=== PATIENT | female | born 2000 | race Caucasian/White ===

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

== ENCOUNTER 2022-01-01 15:20 | Emergency (ER) | payer OTHER, BC, SELFPAY ==
[2022-01-01 15:39] VITALS: BP 121/68; PULSE 90; RESP 16; TEMP 36.8; O2SAT 98; BMI 23.3
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
[2022-01-01 16:32] LABS: Basophils # 0.1 10^3/uL (0.0-0.1); Basophils % 0.9 %; Eosinophils # 0.1 10^3/uL (0.0-0.8); Eosinophils % 1.2 %; Hematocrit 34.4 % (37.0-47.0); Hemoglobin 10.4 g/dL (11.5-15.3); Lymphocytes # 1.8 10^3/uL (1.5-6.5); Lymphocytes % 30.9 %; Mean Corpuscular HGB Conc 30.2 g/dL (30.0-36.0); Mean Corpuscular Hemoglobin 23.4 pg (28.0-34.0); Mean Corpuscular Volume 77.5 fl (81-99); Mean Platelet Volume 10.8 fL (7.4-10.4); Monocytes # 0.4 10^3/uL (0.2-0.9); Monocytes % 6.2 %; Neutrophils # 3.54 10^3/uL (1.8-8.0); Neutrophils % 60.6 %; Nucleated Red Blood Cells % 0 %; Platelet Count 303 10^3/cmm (130-400); Red Blood Count 4.44 10^6/uL (4.1-5.3); Red Cell Distribution Width 15.5 % (12.1-15.1); White Blood Count 5.8 10^3/uL (4.5-13.0)
[2022-01-01] MEDS: ondansetron 2 mg/ML SDV 2 mL 4 MG IVP (16:47)
[2022-01-01] MEDS: sodium chloride 0.9% 500 ML 999 ML IV (16:48)
[2022-01-01 17:06] LABS: Alanine Aminotransferase 17 U/L (0-33); Albumin Level 4.5 g/dL (3.5-5.2); Alkaline Phosphatase 61 IU/L (35-105); Aspartate Amino Transferase 17 U/L (0-32); Blood Urea Nitrogen 10 mg/dL (6-20); Calcium 8.7 mg/dL (8.5-10.5); Carbon Dioxide 23 mmol/L (22-29); Chloride 106 mmol/L (98-107); Globulin 2.8 g/dL (1.3-4.6); Glomerular Filtration Rate 128.8 mL/min (90-130); Glucose 83 mg/dL (65-115); HCG, Serum Qual Negative (Negative); Osmolality Calculated 290 mOsm/kg (285-295); Sodium 141 mmol/L (136-145); Total Bilirubin 0.3 mg/dL (0.15-1.2); Total Protein 7.3 g/dL (6.6-8.7)
[2022-01-01] MEDS: iohexol 350 mg/mL 100 mL Btl IV (18:28)
== END 2022-01-01 19:29 | disposition home or self-care (01) ==
PROVIDERS: Physician Assistant; Emergency Provider Nurse Practitioner Family; PCP Family Medicine
DX: S16.1XXA Strain of muscle, fascia and tendon at neck level, initial encounter (principal); V89.2XXA Person injured in unspecified motor-vehicle accident, traffic, initial encounter
CPT/HCPCS: 70450; 71260; 72125; 74177; 80053; 84703; 85025; 96374; 99283; J2405; J7040; Q9967

== ENCOUNTER 2022-06-26 22:05 | Emergency (ER) | payer OTHER, BC, MEDICAID, SELFPAY ==
[2022-06-26 22:09] VITALS: PULSE 97; RESP 19; TEMP 36.7; O2SAT 100; BMI 22.6
[2022-06-26 22:15] VITALS: BP 130/82
[2022-06-26 22:22] VITALS: BP 131/76; PULSE 92; O2SAT 100
--- NOTE | 2022-06-26 22:22 | W.ED.ALCOHOL ---
HPI - Alcohol General: Chief Complaint: Alcohol Stated Complaint: Dizzy, N/V Time Seen by Provider: 06/26/22 22:06 Source: patient Mode of arrival: ambulatory Limitations: no limitations History of Present Illness: 22-year-old female states that she had been drinking tonight and has been taking shots of vodka. She states that she has been vomiting and felt like she was going to pass out states she is feels very nauseous and ill. She denies any pain anywhere denies hitting her head denies injuries. Associated symptoms: Reports nausea and vomiting; Deny depression Review of Systems Const: Denies: fever(s), chills, body aches or change in appetite Eyes: Denies: blurry vision or eye discomfort ENMT: Denies: throat pain or dental pain Card: Denies: chest pain Resp: Denies: dyspnea GI: Reports: nausea and vomiting : Denies: dysuria Musc: Denies: neck pain or back pain Skin/Breast: Denies: rash Neuro: Denies: headache(s) Psych: Denies: depression Gen/Lymph: Denies: easy bruising All/Imm: Denies: urticaria PFSH ED PFSH: Medical History Chronic migraine History of anemia as a child Hypersomnia, idiopathic Surgical History S/P lumpectomy, right breast (05/14/21) Juvenile fibroadenoma S/P tonsillectomy Family History Mother Diabetes Father Diabetes Hypertension Social History Smoking and tobacco status: never smoked Second hand smoke exposure: No Alcohol intake: never Female Reproductive History: Date of last menstrual period: 05/03/21 Physical Exam Const: COMMON NORMALS: no acute distress, patient oriented x3 and healthy appearing HENMT: COMMON NORMALS: normocephalic and atraumatic HEAD & SCALP: normocephalic and atraumatic Eye: COMMON NORMALS: Equal, round and reactive pupils present and EOMs intact bilaterally PUPIL: Yes Equal, round and reactive pupils present Neck/C-Spine: COMMON NORMALS: full ROM and supple Chest: COMMONS NORMALS: normal inspection of the chest and normal palpation of entire chest wall Resp: COMMON NORMALS: normal respiratory effort, No retractions, No use of accessory muscles and clear to auscultation bilaterally AUSCULTATION: clear to auscultation bilaterally Cardio: COMMON NORMALS: regular rate, regular rhythm and No murmurs present (Cardio) RATE: regular rate RHYTHM: regular rhythm GI: COMMON NORMALS: Normal to inspection, nondistended, normoactive bowel sounds present, Soft to palpation, non-tender and no masses PALPATION: Yes Soft to palpation Extremity: COMMON NORMALS: normal to inspection and full ROM Neuro: COMMON NORMALS: patient oriented x3, moves all extremities and no focal motor deficits Psych: COMMON NORMALS: mental status grossly normal, Normal thought process present and cooperative THOUGHT PROCESS: Normal thought process present Skin: COMMON NORMALS: no rashes or lesions noted and no wounds GENERAL SKIN EXAM: no rashes or lesions noted Course Vital Signs: Vital signs: Vital Signs Temperature 98.1 F 06/26/22 22:09 Pulse Rate 97 06/26/22 22:31 Respiratory Rate 19 H 06/26/22 22:09 Blood Pressure 123/72 06/26/22 22:31 Pulse Oximetry 100 06/26/22 22:31 Oxygen Delivery Me thod 06/26/22 22:09 [facility] - Alcohol Medical Decision Making Patient presents here with alcohol intoxication she feels improved after Zofran and fluids she is ambulatory she is stable for discharge return if worsening. Discharge Plan Discharge Patient Disposition: Home Clinical Impression: Alcohol intoxication Condition: Stable Prescriptions: No Action buspirone 5 mg tablet 5 mg PO TID PRN (Reason: anxiety) Qty: 90 0RF naproxen [Naprosyn] 500 mg tablet 500 mg PO BID PRN (Reason: pain) Qty: 40 0RF Rx Instructions: Take with food sertraline 100 mg tablet 100 mg PO DAILY Qty: 90 1RF ferrous sulfate [FeroSul] 325 mg (65 mg iron) tablet 325 mg PO BID Qty: 60 5RF Discharge Orders: Discharge ED (Routine); Ordered 06/26/22 Ordered By: Jaclyn Tran Referrals: Beryl Vieira DO [Primary Care Provider] - Discharge Diet: Advance as tolerated Discharge Activity: Resume usual activity Patient Instructions: Alcohol Intoxication (ED) Coding Level of Care Code ED Filer Finish for Cielo Fwd Exam Comprehensive
[2022-06-26 22:31] VITALS: BP 123/72; PULSE 97; O2SAT 100
[2022-06-26] MEDS: ondansetron 2 mg/ML SDV 2 mL 4 MG IVP (22:35)
[2022-06-26] MEDS: sodium chloride 0.9% 1,000 ML 999 ML IV (22:35)
== END 2022-06-26 23:40 | disposition home or self-care (01) ==
PROVIDERS: Emergency Provider Emergency Medicine; PCP Family Medicine
DX: F10.129 Alcohol abuse with intoxication, unspecified (principal)
CPT/HCPCS: 96374; 99284; J2405; J7030

== ENCOUNTER → 2022-07-20 11:51 | Outpatient (BNVA) | payer OTHER, BC, MEDICAID, SELFPAY | PROVIDERS: PCP Family Medicine; Visit Provider Family Medicine | DX: F41.1 Generalized anxiety disorder (principal); D50.9 Iron deficiency anemia, unspecified | CPT/HCPCS: 82728; 83550; 85025 ==

== ENCOUNTER 2022-08-26 10:50 | Emergency (ER) | payer OTHER, BC, MEDICAID, SELFPAY ==
--- NOTE | 2022-08-26 10:58 | XRR_ITS ---
PROCEDURE INFORMATION: Exam: XR Chest Exam date and time: 08/26/2022 11:48 AM Age: 22 years old Clinical indication: Cough TECHNIQUE: Imaging protocol: Radiologic exam of the chest. Views: 1 view. COMPARISON: CT chest abd pel w con* 01/01/2022 6:15 PM FINDINGS: Lungs: Unremarkable. No consolidation. Pleural spaces: Unremarkable. No pleural effusion. No pneumothorax. Heart/Mediastinum: Unremarkable. No cardiomegaly. Bones/joints: Unremarkable for age. Other findings: 0FINDINGS: XR/XR chest 1V portable [id number] IMPRESSION: Negative chest
[2022-08-26 11:10] VITALS: BP 120/68; PULSE 111; RESP 15; TEMP 39.3; O2SAT 98; BMI 23.3
[2022-08-26 11:27] VITALS: BP 112/67; PULSE 113; RESP 16; O2SAT 97
--- NOTE | 2022-08-26 11:30 | W.ED.GENADLT ---
HPI - General Adult General: Chief complaint: General Medical Stated complaint: cough/congestion Time Seen by Provider: 08/26/22 11:04 History of Present Illness: Patient is a 22-year-old female comes to the ED with upper respiratory symptoms. Patient has had a sore throat for the past 5 days. Over the past 2 days she has been having fever, cough, nasal congestion and drainage and nausea. Denies any emesis. Patient took a dose of Tylenol just prior to arrival to ED. She also reports some dysuria. Associated symptoms: Deny chest pain, dyspnea, headache(s), nausea, rash, palpitations or vomiting Review of Systems Const: Reports: fever(s), chills, body aches and fatigue Eyes: Denies: change in vision or eye discomfort ENMT: Reports: throat pain, ear or mastoid pain, nasal discharge and nasal congestion; Denies: odynophagia Card: Denies: chest pain, palpitations, edema, swelling of feet/ankles, dyspnea on exertion or orthopnea Resp: Reports: non-productive cough; Denies: dyspnea or productive cough GI: Denies: abdominal pain, nausea, vomiting, diarrhea, constipation or hematochezia : Reports: dysuria; Denies: flank pain or hematuria Musc: Denies: neck pain, back pain or extremity swelling Skin/Breast: Denies: rash or new lesions Neuro: Denies: headache(s), numbness in extremities or weakness in extremities [facility] ED PFSH: Medical History Chronic migraine History of anemia as a child Hypersomnia, idiopathic Surgical History S/P lumpectomy, right breast (05/14/21) Juvenile fibroadenoma S/P tonsillectomy Family History Mother Diabetes Father Diabetes Hypertension Social History Smoking and tobacco status: never smoked Second hand smoke exposure: No Alcohol intake: never Female Reproductive History: Date of last menstrual period: 05/03/21 Physical Exam Const: COMMON NORMALS: patient oriented x3 and alert GENERAL APPEARANCE: cooperative HENMT: COMMON NORMALS: normocephalic HEAD & SCALP: normocephalic MOUTH: Normal oral and palatal mucosa present THROAT: posterior oropharynx normal and uvula midline Neck/C-Spine: COMMON NORMALS: supple GENERAL: Yes normal visual inspection Resp: COMMON NORMALS: normal respiratory effort, No retractions, No use of accessory muscles and clear to auscultation bilaterally AUSCULTATION: clear to auscultation bilaterally Cardio: COMMON NORMALS: regular rate, regular rhythm, S1 normal heart sound present, S2 normal heart sound present, No gallops present (Cardio), No clicks present (Cardio), No murmurs present (Cardio) and Peripheral pulses 2+ throughout RATE: regular rate RHYTHM: regular rhythm HEART SOUNDS: S1 normal heart sound present and S2 normal heart sound present PERIPHERAL PULSES: Peripheral pulses 2+ throughout GI: COMMON NORMALS: Normal to inspection, nondistended, normoactive bowel sounds present, Soft to palpation, non-tender and no masses PALPATION: Yes Soft to palpation : COMMON NORMALS: Yes no CVA tenderness BLADDER/KIDNEY EXAM: Yes no CVA tenderness Back/Pelvis: COMMON NORMALS: no CVA tenderness Extremity: COMMON NORMALS: normal to inspection Neuro: COMMON NORMALS: patient oriented x3 SENSORIUM/ORIENTATION: Yes alert GAIT: Yes Normal gait present Skin: GENERAL SKIN EXAM: dry skin Course Vital Signs: Vital signs: Vital Signs Temperature 102.8 F H 08/26/22 11:10 Pulse Rate 113 H 08/26/22 11:27 Respiratory Rate 16 08/26/22 11:27 Blood Pressure 112/67 08/26/22 11:27 Pulse Oximetry 97 08/26/22 11:27 Oxygen Delivery Me thod 08/26/22 11:27 [facility] - General Adult Medical Decision Making Patient is a 22-year-old female comes to the ED with upper respiratory symptoms. She was also complaining of having some dysuria. Temp 102.8 here in the ED rest of vitals are stable. Her exam is benign. Chest x-ray shows no acute findings. UA was unremarkable. COVID-negative, strep negative and influenza A was positive. Patient was given a dose of Zofran, ibuprofen here in the ED. She was able to tolerate p.o. fluids. She was diagnosed with influenza A and was stable for discharge home. She was sent home with a prescription for Zofran. Told to follow-up with PCP within the next week for reevaluation. Return to ED precautions given. Patient understood and agreed with plan. Lab Data I reviewed the patient's lab results. Radiology Impressions Chest X-Ray 08/26/22 10:58 IMPRESSION: Negative chest Laboratory Results HCG, Qual Negative (Negative) 08/26/22 12:24 Urine Color Yellow (Yellow) 08/26/22 12:24 Urine Appearance Hazy (CLEAR) A 08/26/22 12:24 Urine pH 8 (5-7) H 08/26/22 12:24 Ur Specific [place] 1.015 (1.005-1.030) 08/26/22 12:24 Urine Protein Neg (Negative) 08/26/22 12:24 Urine Glucose (UA) Norm (Normal) 08/26/22 12:24 Urine Ketones Negative (Negative) 08/26/22 12:24 Urine Blood Neg (Negative) 08/26/22 12:24 Urine Nitrate Negative (Negative) 08/26/22 12:24 Urine Bilirubin Neg (Negative) 08/26/22 12:24 Prot Sulfosalicylic Acd Negative (Negative) 08/26/22 12:24 Urine Urobilinogen Neg mg/dL (Negative) 08/26/22 12:24 Ur Leukocyte Esterase Negative (Negative) 08/26/22 12:24 Urine RBC Rare /hpf (0-2) 08/26/22 12:24 Urine WBC 0-4 /hpf (0-5) H 08/26/22 12:24 Ur Squamous Epith Cells 5-10 /hpf (0-5) H 08/26/22 12:24 Amorphous Sediment 2+ /hpf 08/26/22 12:24 Urine Bacteria 1+ /hpf (NONE) H 08/26/22 12:24 Urine Mucus 1+ /hpf 08/26/22 12:24 Influenza Type A Ag Positive (Negative) H 08/26/22 11:24 Influenza Type B Ag Negative (Negative) 08/26/22 11:24 SARS-CoV-2 Ag (Rapid) negative (Negative) 08/26/22 11:24 Group A Strep Rapid Negative (Negative) 08/26/22 11:24 Discharge Plan Discharge Patient Disposition: Home Clinical Impression: Influenza A Condition: Stable Prescriptions: New ondansetron 4 mg tablet,disintegrating 4 mg PO Q8H PRN (Reason: nausea and vomiting) Qty: 20 0RF No Action buspirone 5 mg tablet 5 mg PO TID PRN (Reason: anxiety) Qty: 90 0RF naproxen [Naprosyn] 500 mg tablet 500 mg PO BID PRN (Reason: pain) Qty: 40 0RF Rx Instructions: Take with food sertraline 100 mg tablet 100 mg PO DAILY Qty: 90 1RF ferrous gluconate 324 mg (37.5 mg iron) tablet 324 mg PO TID Qty: 30 2RF Discharge Orders: Discharge ED (Routine); Ordered 08/26/22 Ordered By: Epifanio Newton Referrals: Beryl Vieira DO [Primary Care Provider] - Discharge Diet: Regular Discharge Activity: Increase activity as tolerated Patient Instructions: Influenza (ED) Activity Restrictions/Additional Instructions: Follow-up with medical provider as directed in the next 5 to 7 days for reevaluation. Take medications as prescribed. Make sure you drink plenty of fluids and stay hydrated. Take Tylenol or ibuprofen for any fevers. Return to the ER or your medical provider if condition worsens. Please read and understand discharge instructions. Thank you for choosing [facility] for your healthcare needs today. Please realize this is an emergency room and that we are providing you with a medical screening exam and this may not be complete and all inclusive of all the testing and or work up that you may need to determine your ailment or severity of your illness. It is very important that you follow up as instructed or that you return to the Emergency Department should you have concerns or if your condition changes or worsens in any way. Coding Level of Care Code ED Cctv Technician for Cielo Hopper Exam Comprehensive
[2022-08-26] MEDS: ibuprofen 800 mg tablet PO (11:33)
[2022-08-26] MEDS: ondansetron 2 mg/ML SDV 2 mL 4 MG IM (11:33)
[2022-08-26 11:56] LABS: Rapid Strep A Test Negative (Negative)
[2022-08-26 12:04] LABS: SARS Covid-2 Antigen negative (Negative)
[2022-08-26 12:31] LABS: Influenza A by IFA Positive (Negative); Influenza B by IFA Negative (Negative)
[2022-08-26 12:37] LABS: HCG Qualitative Urine. Negative (Negative)
[2022-08-26 12:42] LABS: Add Urine Microscopic? YES; Bilirubin Urine Neg (Negative); Blood Urine Neg (Negative); Glucose Urine UA Norm (Normal); Ketones Urine Negative (Negative); Leukocyte Esterase Urine Negative (Negative); Nitrate Urine Negative (Negative); Protein Urine Neg (Negative); Specific Gravity, Urine 1.015 (1.005-1.030); Sulfosalicylic Acid Urine Negative (Negative); Urine Appearance Hazy (CLEAR); Urine Color Yellow (Yellow); Urobilinogen Urine Neg (Negative); pH Urine 8 (5-7)
[2022-08-26 12:43] LABS: Bacteria Urine 1+ /hpf; Mucus Urine 1+ /hpf; RBC Urine RARE /hpf (0-2); WBC Urine 0-4 /hpf (0-5)
[2022-08-26 12:44] LABS: Add Urine Culture? No; Amorphous Sediment Urine 2+ /hpf
== END 2022-08-26 13:03 | disposition home or self-care (01) ==
PROVIDERS: Emergency Provider Physician Assistant; PCP Family Medicine
DX: J10.1 Influenza due to other identified influenza virus with other respiratory manifestations (principal); Z20.822 Contact with and (suspected) exposure to COVID-19
CPT/HCPCS: 71045; 81001; 81025; 87081; 87426; 87804; 87880; 96372; 99284; J2405

== ENCOUNTER → 2022-12-29 13:11 | Outpatient (BNVA) | payer OTHER, BC, MEDICAID, SELFPAY | PROVIDERS: PCP Family Medicine; Visit Provider Nurse Practitioner Family | DX: Z20.89 Contact with and (suspected) exposure to other communicable diseases (principal) | CPT/HCPCS: 80053 ==

== ENCOUNTER → 2023-01-19 13:23 | Outpatient (BNVA) | payer OTHER, BC, MEDICAID, SELFPAY | PROVIDERS: PCP Family Medicine; Visit Provider Family Medicine | DX: D50.9 Iron deficiency anemia, unspecified (principal); R21 Rash and other nonspecific skin eruption | CPT/HCPCS: 80048; 82728; 82785; 83550; 86003 ==

== ENCOUNTER → 2023-03-11 11:12 | Outpatient (BNVA) | payer MEDICAID, SELFPAY | PROVIDERS: PCP Family Medicine; Visit Provider Family Medicine | DX: Z01.419 Encounter for gynecological examination (general) (routine) without abnormal findings (principal) | CPT/HCPCS: 87491; 87591; 87624 ==

== ENCOUNTER → 2023-05-10 13:31 | Outpatient (BNVA) | payer MEDICAID, SELFPAY | PROVIDERS: PCP Family Medicine; Visit Provider Family Medicine | DX: R11.0 Nausea (principal); D50.0 Iron deficiency anemia secondary to blood loss (chronic) | CPT/HCPCS: 81025; 82728; 83550; 85025 ==

== ENCOUNTER → 2023-09-09 13:15 | Outpatient (BNVA) | payer MEDICAID, SELFPAY | PROVIDERS: PCP Family Medicine; Visit Provider Family Medicine | DX: Z13.6 Encounter for screening for cardiovascular disorders (principal); D50.0 Iron deficiency anemia secondary to blood loss (chronic); D50.9 Iron deficiency anemia, unspecified; F41.1 Generalized anxiety disorder | CPT/HCPCS: 82728; 83550; 85025 ==

== ENCOUNTER → 2023-12-17 11:28 | Outpatient (BNVA) | payer SELFPAY | PROVIDERS: PCP Family Medicine; Visit Provider Nurse Practitioner | DX: R39.9 Unspecified symptoms and signs involving the genitourinary system (principal); Z32.00 Encounter for pregnancy test, result unknown; R30.0 Dysuria | CPT/HCPCS: 81000; 81025; 87086 ==

== ENCOUNTER → 2024-01-18 10:45 | Outpatient (BNVA) | payer OTHER, SELFPAY | PROVIDERS: PCP Family Medicine; Visit Provider Obstetrics & Gynecology | DX: Z00.00 Encounter for general adult medical examination without abnormal findings (principal) | CPT/HCPCS: 80053; 84146; 84443; 85025 ==

== ENCOUNTER → 2024-03-06 12:08 | Outpatient (BNVA) | payer SELFPAY | PROVIDERS: PCP Family Medicine; Visit Provider Obstetrics & Gynecology | DX: N92.0 Excessive and frequent menstruation with regular cycle (principal) | CPT/HCPCS: 76830 ==

== ENCOUNTER → 2024-06-20 15:06 | Outpatient (BNVA) | payer OTHER, SELFPAY | PROVIDERS: PCP Family Medicine | DX: Z32.01 Encounter for pregnancy test, result positive (principal); D50.0 Iron deficiency anemia secondary to blood loss (chronic) | CPT/HCPCS: 83550; 84702 ==

== ENCOUNTER → 2024-07-05 14:52 | Outpatient (BNVA) | payer OTHER, SELFPAY | PROVIDERS: PCP Family Medicine; Visit Provider Obstetrics & Gynecology | DX: Z36.87 Encounter for antenatal screening for uncertain dates (principal); Z3A.01 Less than 8 weeks gestation of pregnancy | CPT/HCPCS: 76817; 81025 ==

== ENCOUNTER 2024-07-13 07:48 | Emergency (ER) | payer OTHER, SELFPAY ==
[2024-07-13 07:50] VITALS: BP 128/57; PULSE 82; RESP 18; TEMP 36.7; O2SAT 100
--- NOTE | 2024-07-13 07:50 | ECG_ITS ---
[email or web address] Triptease Test Date: 2024-07-13 Pat Name: Santosh Isaac Department: Room: Gender: Female Plug Cutter: : 2000 Requested By: Jaclyn Tran Order Number: [id number] [place] MD: José Miguel Castillo M.D. Measurements Intervals [place] Rate: 84 P: 70 IL: 148 QRS: 16 QRSD: 96 T: 5 QT: 357 QTc: 423 Interpretive Statements SINUS RHYTHM INCOMPLETE RIGHT BUNDLE BRANCH BLOCK [90+ ms QRS DURATION, TERMINAL R IN V1/V2, 40+ ms S IN I/aVL/V4/V5/V6] Compared to ECG 08/29/2016 16:46:58 No significant change Electronically Signed On 07-13-2024 12:09:35 CDT by José Miguel Castillo M.D. [email or web address]
--- NOTE | 2024-07-13 07:53 | ED_ITS ---
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 Patient is currently 8 weeks states she has had some cramping and diarrhea. She denies any vaginal bleeding denies any vomiting she denies any chest pain or headache patient was seen a week ago had a IUP identified on her ultrasound. States she feels improved currently. Associated symptoms: Deny abdominal pain, chest pain, fever(s), headache(s) or nausea Related Data Home Medications Medication Instructions Recorded Confirmed cetirizine 10 mg tablet 10 mg PO DAILY 07/13/24 07/13/24 vit no.95-ferrous 1 tab PO DAILY 07/13/24 07/13/24 fumarate 28 mg-folic acid 800 mcg tablet () Allergies Allergy/AdvReac Type Severity Reaction Status Date / Time No Known Allergies Allergy Verified 07/05/24 11:29 Review of Systems 2 Const: Denies: fever(s), chills, body aches or change in appetite ENMT: Denies: throat pain or dental pain Card: Reports: syncope; Denies: chest pain Resp: Denies: dyspnea GI: Denies: abdominal pain, nausea, vomiting or diarrhea Musc: Denies: neck pain or back pain Skin/Breast: Denies: rash Neuro: Denies: headache(s) PFSH ED 2 PFSH: Medical History Abdominal pain Hypersomnia, idiopathic Chronic migraine History of anemia as a child Surgical History S/P lumpectomy, right breast (05/14/21) Juvenile fibroadenoma S/P tonsillectomy Family History Mother Diabetes Heart disease Hypertension Stroke Thyroid disease Father Diabetes Hypertension Grandmother Brain cancer Diabetes Hypertension Denies family history of Colon cancer Ovarian cancer Prostate cancer Uterine cancer Social History Smoking and tobacco/nicotine status: never used tobacco/nicotine Physical Exam 2 Const: COMMON NORMALS: no acute distress, patient oriented x3 and healthy appearing HENMT: COMMON NORMALS: normocephalic and atraumatic HEAD & SCALP: n ormocephalic and atraumatic Eye: COMMON NORMALS: conjunctivae normal CONJUNCTIVA: Yes conjunctivae normal Neck/C-Spine: COMMON NORMALS: full ROM and supple Chest: COMMONS NORMALS: normal inspection of the chest and normal palpation of entire chest wall Resp: COMMON NORMALS: normal respiratory effort, No retractions, No use of accessory muscles and clear to auscultation bilaterally AUSCULTATION: clear to auscultation bilaterally Cardio: COMMON NORMALS: regular rate, regular rhythm and No murmurs present (Cardio) RATE: regular rate RHYTHM: regular rhythm GI: COMMON NORMALS: Normal to inspection, nondistended, normoactive bowel sounds present, Soft to palpation, non-tender and no masses PALPATION: Yes Soft to palpation Extremity: COMMON NORMALS: normal to inspection and full ROM Neuro: COMMON NORMALS: patient oriented x3, moves all extremities and no focal motor deficits Psych: COMMON NORMALS: mental status grossly normal, Normal thought process present and cooperative THOUGHT PROCESS: Normal thought process present Skin: COMMON NORMALS: no rashes or lesions noted and no wounds GENERAL SKIN EXAM: no rashes or lesions noted Course 2 Vital Signs: Vital signs: Vital Signs Temperature 98.0 F 07/13/24 07:50 Pulse Rate 82 07/13/24 07:50 Respiratory Rate 18 07/13/24 07:50 Blood Pressure 128/57 07/13/24 07:50 Pulse Oximetry 100 07/13/24 07:50 Oxygen Delivery Me thod Room Air 07/13/24 07:50 MDM - Syncope Medical Decision Making Patient presents here with a syncopal event likely vasovagal her vitals here been normal orthostatics are normal no complaints her blood work is normal no signs of bleeding she stable for discharge follow-up with PCP return if worsening. She had an ultrasound that showed IUP no signs of ectopic Medical Records I reviewed the patient's medical records. Lab Data I reviewed the patient's lab results. 07/13/24 07:58 07/13/24 07:58 Laboratory Results WBC 6.63 10^3/uL (3.29-11.43) 07/13/24 07:58 RBC 4.79 10^6/uL (3.85-5.65) 07/13/24 07:58 Hgb 11.70 g/dL (11.27-16.99) 07/13/24 07:58 Hct 38.2 % (36-47) 07/13/24 07:58 MCV 79.7 fl (85-98) L 07/13/24 07:58 MCH 24.4 pg (27-33) L 07/13/24 07:58 MCHC 30.6 g/dL (30-55) 07/13/24 07:58 RDW 15.5 % (12.1-15.1) H 07/13/24 07:58 Plt Count 260 10^3/cmm (157-399) 07/13/24 07:58 MPV 10.3 fL (7.4-10.4) 07/13/24 07:58 Neut % (Auto) 64.7 % 07/13/24 07:58 Lymph % (Auto) 27.6 % 07/13/24 07:58 [place] % (Auto) 6.8 % 07/13/24 07:58 Eos % (Auto) 0.2 % 07/13/24 07:58 Baso % (Auto) 0.5 % 07/13/24 07:58 Neut # (Auto) 4.30 10^3/uL (1.8-7.7) 07/13/24 07:58 Lymph # (Auto) 1.8 10^3/uL (0.8-4.8) 07/13/24 07:58 [place] # (Auto) 0.5 10^3/uL (0.2-0.9) 07/13/24 07:58 Eos # (Auto) 0.0 10^3/uL (0.0-0.8) 07/13/24 07:58 Baso # (Auto) 0.0 10^3/uL (0.0-0.1) 07/13/24 07:58 Nucleated RBC % (auto) 0 % 07/13/24 07:58 Nucleated RBCs # 0.0 /100WBC 07/13/24 07:58 Sodium 137 mmol/L (136-145) 07/13/24 07:58 Potassium 3.7 mmol/L (3.5-5.1) 07/13/24 07:58 Chloride 104 mmol/L (98-107) 07/13/24 07:58 Carbon Dioxide 20 mmol/L (22-29) L 07/13/24 07:58 Anion Gap 16.7 (5-19) 07/13/24 07:58 BUN 7 mg/dL (6-20) 07/13/24 07:58 Creatinine 0.6 mg/dL (0.5-0.9) 07/13/24 07:58 GFR Calculation 125.0 mL/min (90-130) 07/13/24 07:58 Glucose 104 mg/dL (65-115) 07/13/24 07:58 Calculated Osmolality 282 mOsm/kg (285-295) L 07/13/24 07:58 Calcium 8.7 mg/dL (8.5-10.5) 07/13/24 07:58 Total Bilirubin 0.3 mg/dL (0.15-1.2) 07/13/24 07:58 AST 15 U/L (0-32) 07/13/24 07:58 ALT 16 U/L (0-33) 07/13/24 07:58 Alkaline Phosphatase 59 U/L (35-105) 07/13/24 07:58 Total Protein 6.9 g/dL (6.6-8.7) 07/13/24 07:58 Albumin 4.3 g/dL (3.5-5.2) 07/13/24 07:58 Globulin 2.6 g/dL (1.3-4.6) 07/13/24 07:58 All radiology interpretation(s) finalized by discharge EKG Data EKG 1: I personally reviewed and interpreted this EKG as follows: EKG interpretation date: 07/13/24 EKG interpretation time: 07:59 Interpretation: nsr hr [address] elevation qrs 96 qtc 398 Discharge Plan Discharge Patient Disposition: Home Clinical Impression: Syncope Condition: Stable Prescriptions: No Action cetirizine 10 mg Tablet 10 mg PO DAILY PNV cmb#95-ferrous fumarate-FA [] 28 mg iron- 800 mcg Tablet 1 tab PO DAILY Discharge Orders: Discharge ED (Routine); Ordered 07/13/24 Ordered By: Jaclyn Tran Referrals: Beryl Vieira DO [Primary Care Provider] - 4-7 days Discharge Diet: Advance as tolerated Discharge Activity: Resume usual activity Patient Instructions: Syncope (ED) Coding Level of Care Code ED [employer] President for Cielo Hopper
[2024-07-13 08:12] LABS: Basophils % 0.5 %; Eosinophils % 0.2 %; Hematocrit 38.2 % (36-47); Lymphocytes # 1.8 10^3/uL (0.8-4.8); Lymphocytes % 27.6 %; Mean Corpuscular HGB Conc 30.6 g/dL (30-55); Mean Corpuscular Hemoglobin 24.4 pg (27-33); Mean Corpuscular Volume 79.7 fl (85-98); Mean Platelet Volume 10.3 fL (7.4-10.4); Monocytes # 0.5 10^3/uL (0.2-0.9); Monocytes % 6.8 %; Neutrophils % 64.7 %; Nucleated Red Blood Cells % 0 %; Platelet Count 260 10^3/cmm (157-399); Red Blood Count 4.79 10^6/uL (3.85-5.65); Red Cell Distribution Width 15.5 % (12.1-15.1); White Blood Count 6.63 10^3/uL (3.29-11.43)
[2024-07-13 08:33] LABS: Alanine Aminotransferase 16 U/L (0-33); Albumin Level 4.3 g/dL (3.5-5.2); Alkaline Phosphatase 59 U/L (35-105); Anion Gap 16.7 (5-19); Aspartate Amino Transferase 15 U/L (0-32); Blood Urea Nitrogen 7 mg/dL (6-20); Calcium 8.7 mg/dL (8.5-10.5); Carbon Dioxide 20 mmol/L (22-29); Chloride 104 mmol/L (98-107); Globulin 2.6 g/dL (1.3-4.6); Glucose 104 mg/dL (65-115); Osmolality Calculated 282 mOsm/kg (285-295); Potassium 3.7 mmol/L (3.5-5.1); Sodium 137 mmol/L (136-145); Total Bilirubin 0.3 mg/dL (0.15-1.2); Total Protein 6.9 g/dL (6.6-8.7)
[2024-07-13 08:48] VITALS: BP 109/68; PULSE 85; O2SAT 98
[2024-07-13 08:51] VITALS: BP 107/61; PULSE 94; O2SAT 98
== END 2024-07-13 08:47 | disposition home or self-care (01) ==
PROVIDERS: Emergency Provider Emergency Medicine; PCP Family Medicine
DX: R55 Syncope and collapse (principal)
CPT/HCPCS: 80053; 85025; 93005; 99284

== ENCOUNTER 2024-08-06 01:51 | Emergency (ER) | payer OTHER, SELFPAY ==
[2024-08-06 01:53] VITALS: BP 127/64; PULSE 86; RESP 16; TEMP 36.9; O2SAT 99; BMI 28.2
--- NOTE | 2024-08-06 01:53 | ECG_ITS ---
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
--- NOTE | 2024-08-06 02:13 | ED_ITS ---
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 She states that she feels much improved currently she denies any headache or chest pain she has not had any new abdominal pain or vaginal bleeding Associated symptoms: Deny chest pain, fever(s), headache(s) or nausea Related Data Home Medications Medication Instructions Recorded Confirmed cetirizine 10 mg tablet 10 mg PO DAILY 07/13/24 07/13/24 vit no.95-ferrous 1 tab PO DAILY 07/13/24 07/13/24 fumarate 28 mg-folic acid 800 mcg tablet () Allergies Allergy/AdvReac Type Severity Reaction Status Date / Time No Known Allergies Allergy Verified 07/05/24 11:29 Review of Systems 2 Const: Denies: fever(s), chills, body aches or change in appetite ENMT: Denies: throat pain or dental pain Card: Reports: syncope; Denies: chest pain Resp: Denies: dyspnea GI: Denies: nausea, vomiting or diarrhea Musc: Denies: neck pain or back pain Skin/Breast: Denies: rash Neuro: Denies: headache(s) PFSH ED 2 PFSH: Medical History Abdominal pain Hypersomnia, idiopathic Chronic migraine History of anemia as a child Surgical History S/P lumpectomy, right breast (05/14/21) Juvenile fibroadenoma S/P tonsillectomy Family History Mother Diabetes Heart disease Hypertension Stroke Thyroid disease Father Diabetes Hypertension Grandmother Brain cancer Diabetes Hypertension Denies family history of Colon cancer Ovarian cancer Prostate cancer Uterine cancer Social History Smoking and tobacco/nicotine status: never used tobacco/nicotine Physical Exam 2 Const: COMMON NORMALS: no acute distress, patient oriented x3 and healthy appearing HENMT: COMMON NORMALS: normocephalic and atraumatic HEAD & SCALP: n ormocephalic and atraumatic Eye: COMMON NORMALS: conjunctivae normal CONJUNCTIVA: Yes conjunctivae normal Neck/C-Spine: COMMON NORMALS: supple Chest: COMMONS NORMALS: normal inspection of the chest Resp: COMMON NORMALS: normal respiratory effort Cardio: COMMON NORMALS: regular rate, regular rhythm and No murmurs present (Cardio) RATE: regular rate RHYTHM: regular rhythm GI: COMMON NORMALS: Normal to inspection, nondistended, normoactive bowel sounds present, Soft to palpation, non-tender and no masses PALPATION: Yes Soft to palpation Extremity: COMMON NORMALS: normal to inspection and full ROM Neuro: COMMON NORMALS: patient oriented x3, moves all extremities and no focal motor deficits Psych: COMMON NORMALS: mental status grossly normal, Normal thought process present and cooperative THOUGHT PROCESS: Normal thought process present Skin: COMMON NORMALS: no rashes or lesions noted and no wounds GENERAL SKIN EXAM: no rashes or lesions noted Course 2 Vital Signs: Vital signs: Vital Signs Temperature 98.4 F 08/06/24 01:53 Pulse Rate 98 08/06/24 02:53 Respiratory Rate 16 08/06/24 01:53 Blood Pressure 106/66 08/06/24 02:53 Pulse Oximetry 99 08/06/24 01:53 Oxygen Delivery Me thod Room Air 08/06/24 01:53 MDM - Syncope Medical Decision Making Patient presents with a syncopal event she has been well-appearing here blood pressures are normal blood work is normal as well. I did a bedside ultrasound showed IUP consistent dates heart rate in the 140s she has no related complaints she stable for discharge follow-up with PCP return if worsening. Medical Records I reviewed the patient's medical records. Lab Data I reviewed the patient's lab results. 08/06/24 02:05 08/06/24 02:05 Laboratory Results WBC 9.41 10^3/uL (3.29-11.43) 08/06/24 02:05 RBC 4.86 10^6/uL (3.85-5.65) 08/06/24 02:05 Hgb 12.00 g/dL (11.27-16.99) 08/06/24 02:05 Hct 38.2 % (36-47) 08/06/24 02:05 MCV 78.6 fl (85-98) L 08/06/24 02:05 MCH 24.7 pg (27-33) L 08/06/24 02:05 MCHC 31.4 g/dL (30-55) 08/06/24 02:05 RDW 15.2 % (12.1-15.1) H 08/06/24 02:05 Plt Count 256 10^3/cmm (157-399) 08/06/24 02:05 MPV 10.3 fL (7.4-10.4) 08/06/24 02:05 Neut % (Auto) 76.4 % 08/06/24 02:05 Lymph % (Auto) 17.6 % 08/06/24 02:05 [place] % (Auto) 5.3 % 08/06/24 02:05 Eos % (Auto) 0.1 % 08/06/24 02:05 Baso % (Auto) 0.3 % 08/06/24 02:05 Neut # (Auto) 7.18 10^3/uL (1.8-7.7) 08/06/24 02:05 Lymph # (Auto) 1.7 10^3/uL (0.8-4.8) 08/06/24 02:05 [place] # (Auto) 0.5 10^3/uL (0.2-0.9) 08/06/24 02:05 Eos # (Auto) 0.0 10^3/uL (0.0-0.8) 08/06/24 02:05 Baso # (Auto) 0.0 10^3/uL (0.0-0.1) 08/06/24 02:05 Nucleated RBC % (auto) 0 % 08/06/24 02:05 Nucleated RBCs # 0.0 /100WBC 08/06/24 02:05 Sodium 139 mmol/L (136-145) 08/06/24 02:05 Potassium 3.5 mmol/L (3.5-5.1) 08/06/24 02:05 Chloride 106 mmol/L (98-107) 08/06/24 02:05 Carbon Dioxide 20 mmol/L (22-29) L 08/06/24 02:05 Anion Gap 16.5 (5-19) 08/06/24 02:05 BUN 5 mg/dL (6-20) L 08/06/24 02:05 Creatinine 0.5 mg/dL (0.5-0.9) 08/06/24 02:05 GFR Calculation 154.3 mL/min (90-130) H 08/06/24 02:05 Glucose 92 mg/dL (65-115) 08/06/24 02:05 Calculated Osmolality 285 mOsm/kg (285-295) 08/06/24 02:05 Calcium 8.9 mg/dL (8.5-10.5) 08/06/24 02:05 Total Bilirubin 0.2 mg/dL (0.15-1.2) 08/06/24 02:05 AST 11 U/L (0-32) 08/06/24 02:05 ALT 11 U/L (0-33) 08/06/24 02:05 Alkaline Phosphatase 58 U/L (35-105) 08/06/24 02:05 Total Protein 6.7 g/dL (6.6-8.7) 08/06/24 02:05 Albumin 4.1 g/dL (3.5-5.2) 08/06/24 02:05 Globulin 2.6 g/dL (1.3-4.6) 08/06/24 02:05 No radiology studies performed this visit EKG Data EKG 1: I personally reviewed and interpreted this EKG as follows: EKG interpretation date: 08/06/24 EKG interpretation time: 02:06 Interpretation: nsr hr [address] or t wave abnormalities qrs 97 qtc 401 Discharge Plan Discharge Patient Disposition: Home Clinical Impression: Syncope Condition: Stable Prescriptions: No Action cetirizine 10 mg Tablet 10 mg PO DAILY PNV cmb#95-ferrous fumarate-FA [] 28 mg iron- 800 mcg Tablet 1 tab PO DAILY Discharge Orders: Discharge ED (Routine); Ordered 08/06/24 Ordered By: Jaclyn Tran Referrals: Beryl Vieira DO [Primary Care Provider] - Discharge Diet: Advance as tolerated Discharge Activity: Resume usual activity Patient Instructions: Syncope (ED) Coding Level of Care Code ED 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
[2024-08-06 02:20] LABS: Basophils % 0.3 %; Eosinophils % 0.1 %; Hematocrit 38.2 % (36-47); Lymphocytes # 1.7 10^3/uL (0.8-4.8); Lymphocytes % 17.6 %; Mean Corpuscular HGB Conc 31.4 g/dL (30-55); Mean Corpuscular Hemoglobin 24.7 pg (27-33); Mean Corpuscular Volume 78.6 fl (85-98); Mean Platelet Volume 10.3 fL (7.4-10.4); Monocytes # 0.5 10^3/uL (0.2-0.9); Monocytes % 5.3 %; Neutrophils # 7.18 10^3/uL (1.8-7.7); Neutrophils % 76.4 %; Nucleated Red Blood Cells % 0 %; Platelet Count 256 10^3/cmm (157-399); Red Blood Count 4.86 10^6/uL (3.85-5.65); Red Cell Distribution Width 15.2 % (12.1-15.1); White Blood Count 9.41 10^3/uL (3.29-11.43)
[2024-08-06] MEDS: sodium chloride 0.9% 1,000 ML 999 ML IV (02:20)
[2024-08-06 02:47] LABS: Alanine Aminotransferase 11 U/L (0-33); Albumin Level 4.1 g/dL (3.5-5.2); Alkaline Phosphatase 58 U/L (35-105); Anion Gap 16.5 (5-19); Aspartate Amino Transferase 11 U/L (0-32); Blood Urea Nitrogen 5 mg/dL (6-20); Calcium 8.9 mg/dL (8.5-10.5); Carbon Dioxide 20 mmol/L (22-29); Chloride 106 mmol/L (98-107); Creatinine Clr Calc Pharmacy 187.5933; Globulin 2.6 g/dL (1.3-4.6); Glomerular Filtration Rate 154.3 mL/min (90-130); Glucose 92 mg/dL (65-115); Osmolality Calculated 285 mOsm/kg (285-295); Potassium 3.5 mmol/L (3.5-5.1); Sodium 139 mmol/L (136-145); Total Bilirubin 0.2 mg/dL (0.15-1.2); Total Protein 6.7 g/dL (6.6-8.7)
[2024-08-06 02:52] VITALS: BP 113/61; BP 118/64; PULSE 89; PULSE 98
[2024-08-06 02:53] VITALS: BP 106/66; PULSE 98
[2024-08-06 03:11] VITALS: BP 119/56; PULSE 89; O2SAT 98
== END 2024-08-06 03:15 | disposition home or self-care (01) ==
PROVIDERS: Emergency Provider Emergency Medicine; PCP Family Medicine
DX: R55 Syncope and collapse (principal); Z3A.12 12 weeks gestation of pregnancy
CPT/HCPCS: 36415; 80053; 85025; 93005; 96360; 99284; J7030

== ENCOUNTER → 2024-10-25 10:59 | Outpatient (BNVA) | payer OTHER, SELFPAY | PROVIDERS: PCP Family Medicine; Visit Provider Clinical Nurse Specialist Adult Health | DX: Z34.90 Encounter for supervision of normal pregnancy, unspecified, unspecified trimester (principal); N39.0 Urinary tract infection, site not specified; J06.9 Acute upper respiratory infection, unspecified | CPT/HCPCS: 81000; 87400; 87426 ==